=== PATIENT | female | born 1990 | race African-American/Black ===

== ENCOUNTER 2019-11-27 02:11 | Emergency (ER) | payer SELFPAY ==
--- NOTE | ~2019-11-27 | XR_ITS ---
EXAMINATION: XR chest 2V DATE: 11/27/2019 03:44 INDICATION: Shortness of breath, midsternal chest pain TECHNIQUE: PA and lateral views of the chest are obtained. COMPARISON: None available FINDINGS: The lungs are free of acute opacities. There is no pleural effusion or pneumothorax. The ca rdiomediastinal silhouette is normal. The visualized bones and soft tissues are unremarkable. IMPRESSION: 1. No acute cardiopulmonary abnormality. Reviewed, dictated and finalized at location A.
[2019-11-27 02:12] VITALS: BP 147/87; PULSE 93; RESP 22; TEMP 36.6; O2SAT 99
--- NOTE | 2019-11-27 02:26 | ECG_ITS ---
Measurements Intervals [place] Rate: 86 P: 71 AK: 167 QRS: 59 QRSD: 91 T: 59 QT: 378 QTc: 453 Interpretive Statements SINUS RHYTHM NONSPECIFIC T-WAVE ABNORMALITY- DIFFUSE LEADS BASELINE ARTIFACT- I, II, III, AVR, AVL, V1, V4 BORDERLINE ECG Electronically Signed On 11-27-2019 7:13:43 CDT by Galileo Saleh D.O.
[2019-11-27 02:45] VITALS: BP 128/88; PULSE 89; RESP 20; O2SAT 97
[2019-11-27 02:56] LABS: Basophils Percent Auto 0.3 % (0.2-1.2); Eosinophils Percent Auto 0.3 % (0-4.4); Hemoglobin 12.5 g/dL (12.0-15.0); Immature Granulocyte Absolute 0.02 K/mm3 (0.00-0.031); Immature Granulocyte Percent A 0.2 % (0-0.5); Lymphocytes Absolute Auto 3.03 K/mm3 (0.9-3.2); Lymphocytes Percent Auto 34.9 % (18.3-44.2); Mean Corpuscular HGB Conc 33.8 g/dl (32-36); Mean Corpuscular Volume 82.8 fl (80-100); Mean Platelet Volume 9.5 fl (7.4-10.4); Monocytes Absolute Auto 0.8 K/mm3 (0.1-0.6); Monocytes Percent Auto 8.6 % (2.6-8.5); Neutrophils Absolute Auto 4.8 K/mm3 (1.3-6.7); Neutrophils Percent Auto 55.7 % (45.5-73.1); Platelet Count Result 277 k/mm3 (150-375); Red Blood Count 4.47 M/mm3 (4.2-5.4); White Blood Count 8.7 K/mm3 (4.5-10.0)
[2019-11-27 03:13] LABS: Anion Gap 12 mmol/L (8-16); Blood Urea Nitrogen 14 mg/dL (7-17); Calcium 9.5 mg/dL (8.4-10.2); Carbon Dioxide 20 mmol/L (22-30); Chloride 106 mmol/L (98-107); Estimated Glomerular Filt Rate > 60; Glucose 86 mg/dL (65-105); Potassium 3.8 mmol/L (3.4-5.0); Sodium 138 mmol/L (137-145)
[2019-11-27 04:44] VITALS: BP 142/88; PULSE 79; RESP 20; O2SAT 99
--- NOTE | 2019-11-27 05:21 | ED.GENADULT ---
HPI - General Adult General Chief complaint: Shortness of Breath/Dyspnea Stated complaint: can't breath Time Seen by Provider: 11/27/19 03:02 History of Present Illness HPI narrative: Patient is a 29-year-old female who presents the ER with shortness of breath and cough associated chest pain. She reported to triage that started couple hours prior to arrival but for me she reports is been ongoing for a month. She has been seen by her primary care physician who line to obtain a chest x-ray as well as a TSH level. She reports she never did that and so she decided to come into night to be evaluated further. No runny nose or sore throat. Cough is nonproductive. No loss of consciousness or hemoptysis. Found no aggravating or alleviating factors. Denies sick contacts. Related Data Home Medications Medication Instructions Recorded Confirmed metoprolol tartrate 25 mg PO BID 11/27/19 Allergies Allergy/AdvReac Type Severity Reaction Status Date / Time No Known Allergies Allergy Verified 11/27/19 02:48 Review of Systems Review of Systems: All systems reviewed & are unremarkable except as noted in HPI and below Constitutional: Constitutional: Denies chills, Denies fever(s) and Denies weakness ENT: Denies nasal congestion and Denies sore throat Cardiovascular: Cardiovascular: Reports chest pain and Denies radiating jaw, neck or arm pain Respiratory: Respiratory: Reports cough, Reports dyspnea and Denies wheezing Gastrointestinal: Gastrointestinal: Denies abdominal pain, Denies nausea and Denies vomiting PMFSH Past Medical History Medical History (Updated 11/27/19 @ 05:27 by Marshal Whittaker MD) Healthy female adult Surgical History Surgical History (Updated 11/27/19 @ 05:25 by Marshal Whittaker MD) No history of previous surgery Social History Social History (Updated 11/27/19 @ 05:26 by Marshal Whittaker MD) Smoking status: Never smoker Gender identity (if verbalized by the patient): Female Exam Narrative: Exam Narrative: GENERAL: Well-appearing, well-nourished, and in no acute distress. HEAD: Normocephalic, atraumatic. ENT: Mucous membranes moist. CHEST: Clear to auscultation. No respiratory distress. Tender palpation anterior chest wall over sternum. HEART: Regular rate and rhythm. Normal peripheral pulses. ABDOMEN: Soft, nontender, nondistended. EXTREMITIES: Normal range of motion. No edema. NEURO: Alert and oriented x3. PSYCH: Normal mood and affect. Course Course Emergency Course: Informed of results. No additional questions or concerns. Discharge home. Follow-up with PCP. Vital Signs Vital signs: Vital Signs Temperature 97.9 F 11/27/19 02:12 Pulse Rate 93 11/27/19 02:12 Respiratory Rate 22 H 11/27/19 02:12 Blood Pressure 147/87 H 11/27/19 02:12 Pulse Oximetry 99 11/27/19 02:12 Temperature 97.9 F 11/27/19 02:12 Pulse Rate 79 11/27/19 04:44 Respiratory Rate 20 11/27/19 04:44 Blood Pressure 142/88 H 11/27/19 04:44 Pulse Oximetry 99 11/27/19 04:44 Medical Decision Making Vital Signs Vital Signs: Vital Signs Temperature 97.9 F 11/27/19 02:12 Pulse Rate 93 11/27/19 02:12 Respiratory Rate 22 H 11/27/19 02:12 Blood Pressure 147/87 H 11/27/19 02:12 Pulse Oximetry 99 11/27/19 02:12 Temperature 97.9 F 11/27/19 02:12 Pulse Rate 79 11/27/19 04:44 Respiratory Rate 20 11/27/19 04:44 Blood Pressure 142/88 H 11/27/19 04:44 Pulse Oximetry 99 11/27/19 04:44 Lab Data Result diagrams: 11/27/19 02:44 11/27/19 02:44 Labs: Lab Results 11/27/19 11/27/19 11/27/19 Range/Units 02:44 02:44 04:23 WBC 8.7 (4.5-10.0) K/mm3 RBC 4.47 (4.2-5.4) M/mm3 Hgb 12.5 (12.0-15.0) g/dL Hct 37.0 (37.0-47.0) % MCV 82.8 (80-100) fl MCH 28.0 (26-34) pg MCHC 33.8 (32-36) g/dl RDW 14.0 (11.5-14.5) % Plt Count 277 (150-375) k/mm3 MPV 9.5 (7.4-10.4) fl
[2019-11-27 05:28] LABS: Thyroid Stimulating Hormone Reflex 0.472 uIU/mL (0.465-4.68)
[2019-11-27 05:40] VITALS: BP 129/82; PULSE 87; RESP 20; O2SAT 99
== END 2019-11-27 05:54 | disposition home or self-care (01) ==
PROVIDERS: Emergency Provider Emergency Medicine
DX: R07.89 Other chest pain (principal); R94.31 Abnormal electrocardiogram [ECG] [EKG]
CPT/HCPCS: 36415; 71046; 80048; 84443; 85025; 93005; 99283